=== PATIENT | male | born 1935 | race Caucasian/White ===

== ENCOUNTER → 2017-03-27 | Outpatient (CLI) | payer MEDICARE, BC ==
[~2017-03-27] MED LIST: ALFU1TAB10 PO; ALFU1TAB14 PO; AMLO5TAB2 PO; AMLO5TAB22 PO; ASPI325T24 PO; ASPI81TA23 PO; CELE200C PO; HYZA100T6 PO; LEVO.1 PO; LIPI10TA PO; SYNT112T PO; VITA100T10 PO
[2017-03-27 10:03] LABS: HEMATOCRIT 40.3 % (39.0-51.0); HEMOGLOBIN 13.7 GM/DL (13.0-17.0); MEAN CELL VOLUME 89.6 FL (80.0-100.0); MEAN CORPUSCULAR HEMOGLOBIN 30.4 PG (27.0-34.0); MEAN PLATELET VOLUME 7.8 FL (7.0-11.0); PLATELET COUNT 189 TH/MM3 (150-450); RED CELL DISTRIBUTION WIDTH 13.7 % (11.6-17.2); WHITE BLOOD COUNT 6.4 TH/MM3 (4.0-11.0)
[2017-03-27 10:11] LABS: BILIRUBIN, URINE NEG (NEG); BLOOD, URINE NEG (NEG); GLUCOSE,URINE NEG (NEG); KETONE, URINE NEG (NEG); MUCUS URINE FEW /lpf (OCC); NITRITE,URINE NEG (NEG); SQUAMOUS EPITHELIAL CELL URINE <1 /hpf (0-5); URINE COLOR YELLOW (YELLW/STRAW); URINE LEUKOCYTE ESTERASE NEG (NEG)
[2017-03-27 10:12] LABS: INTERNATIONAL NORMALIZED RATIO 1.1 RATIO; PROTHROMBIN TIME - PATIENT 11.2 SEC (9.8-11.6)
[2017-03-27 10:29] LABS: BICARBONATE 28.3 MEQ/L (21.0-32.0); CALCIUM 8.7 MG/DL (8.5-10.1); CREATININE 1.57 MG/DL (0.60-1.30)
--- NOTE | 2017-03-27 19:11 | EKG ---
Date Performed: 03/27/2017 Time Performed: 09:25:46 PTAGE: 81 years EKG: Sinus rhythm Since previous tracing, no significant change noted Normal ECG PREVIOUS TRACING : 04/09/2014 15.35 DOCTOR: Ash Hall Interpretating Date/Time 03/27/2017 19:10:23
== END ==
LOC: CPRE 08:25
PROVIDERS: ATTEND Orthopaedic Surgery
DX: Z01.812 Encounter for preprocedural laboratory examination (principal); Z01.810 Encounter for preprocedural cardiovascular examination; M79.609 Pain in unspecified limb; M17.11 Unilateral primary osteoarthritis, right knee; I10 Essential (primary) hypertension
CPT/HCPCS: 36415; 80048; 81001; 85027; 85610; 85730; 93005

== ENCOUNTER 2017-04-17 07:10 | Inpatient (IN) | payer MEDICARE, BC ==
[~2017-04-17] VITALS: Ht 172.7 cm; Wt 94.0 kg
[~2017-04-17 07:10] MED LIST changes: -ALFU1TAB10 PO; -AMLO5TAB22 PO; -ASPI325T24 PO; -CELE200C PO; -SYNT112T PO
[2017-04-17 08:19] VITALS: PULSE 76
[2017-04-17] MEDS ORDERED: MIDAZOLAM HCL 2 MG/2 ML VIAL ONE (08:25)
[2017-04-17] MEDS ORDERED: FAMOTIDINE 20 MG/2 ML VIAL ONE ×2 (08:26→09:33)
[2017-04-17] MEDS ORDERED: FAT EMULSION 20% INJ 0 ML ONE (08:26)
[2017-04-17] MEDS ORDERED: SODIUM CHLORID 0.9% 500 ML IV PRN (08:45)
[2017-04-17] MEDS ORDERED: CHLORHEXIDINE GLUCONATE 4% SOLN 120 ML BTL TOPICAL SCH (08:45)
[2017-04-17] MEDS ORDERED: CHLORHEXIDINE GLUCONATE 2 % 1 PACK (2 CLOTHS) TOPICAL PRN (08:45)
[2017-04-17] MEDS ORDERED: POVIDONE IODINE 5% (ANTISEPSIS KIT) 4 APPLICATIONS EACH NARE PRN (08:45)
[2017-04-17] MEDS ORDERED: LACTATED RINGER'S 1000 ML IV PRN (08:45)
[2017-04-17] MEDS ORDERED: METOPROLOL TARTRATE 25 MG TAB PO PRN (08:45)
[2017-04-17] MEDS ORDERED: ceFAZolin 2 GM PREMIX 50 ML IV SCH (08:45)
[2017-04-17] MEDS ORDERED: GENTAMICIN SULFATE 80 MG/2 ML VIAL ONE (09:02)
[2017-04-17] MEDS ORDERED: Post-op Orders (for Pharmacy) XX ONE (09:15)
[2017-04-17] MEDS ORDERED: ZOLPIDEM TARTRATE 5 MG TAB PO PRN (09:15)
[2017-04-17] MEDS ORDERED: ACETAMINOPHEN/HYDROcodone 325 MG/7.5 MG TAB PO PRN ×2 (09:15)
[2017-04-17] MEDS: KETOROLAC TROMETHAMINE 30 MG/ML (IVP) VIAL IVP SCH ×3 (09:15→21:49)
[2017-04-17] MEDS ORDERED: NON-FORMULARY DRUG (Losartan-Hydrochlorothiazide (Hyzaar) 1 TAB) PO SCH (09:15)
[2017-04-17] MEDS ORDERED: ONDANSETRON HCL 4 MG/2 ML VIAL IVP PRN (09:15)
[2017-04-17] MEDS ORDERED: MAGNESIUM HYDROXIDE SUSP 30 ML CUP PO PRN (09:15)
[2017-04-17] MEDS ORDERED: MORPHINE SULFATE 4 MG/ML INJ IV PUSH PRN (09:15)
--- NOTE | 2017-04-17 09:19 | HHI.FF ---
Face to Face Verification Diagnosis: (1) Status post total right knee replacement Physical Therapy Gait training Knee: Total knee, Protocol: Right, Gait training, Full weight bearing Right LE Weight Bearing: WB as tolerated Right LE Range of Motion: Active ROM (active, active-assisted and passive range of motion. Range of motion goal is 0 extension to 135 of flexion. Range of motion in the operating room was 0 extension to 140 of flexion.) Nursing Nursing: Dressing changes (to begin on postop day 7.) Dressing Changes: Daily dressing change (to begin on postop day 7.), Coverderm/ Primapore Additional Instructions Remove Steri-Strips on postoperative day 14. I have seen patient Mega Hernandez on 04/17/17. My clinical findings support the need for the requested home health care services because: Ltd mobility - disease progression Limited ability to care for self High risk of falls I certify that my clinical findings support that this patient is homebound because: Post-op weakness Unsteady gait/balance Unsafe to leave home unassisted Oscar Morris MD (Charles) Apr 17, 2017 09:19
[2017-04-17] MEDS ORDERED: ECASA81 PO (09:20)
[2017-04-17] MEDS ORDERED: TRANEXAMIC ACID INJ 940 MG in SODIUM CHLORIDE 0.9% INJ 100 ML IV SCH ×3 (09:30→12:30)
[2017-04-17] MEDS ORDERED: ACETAMINOPHEN 1000 MG/100 ML 100 ML IV ONE (09:33)
[2017-04-17] MEDS ORDERED: PROPOFOL 500 MG/50 ML INJ 50 ML ONE (09:35)
[2017-04-17] MEDS ORDERED: EXPAREL PERI-ARTICULAR INJECTION (TOTAL VOL. 100 ML) P-ARTICULR SCH ×2 (10:00)
[2017-04-17] MEDS ORDERED: PROPOFOL 200 MG/20 ML AMP IV ONE (12:00)
[2017-04-17] MEDS ORDERED: DEXAMETHASONE SOD PHOS 4 MG/ML VIAL IV ONE (12:00)
[2017-04-17] MEDS ORDERED: ePHEDrine/NS 25 MG/5 ML SYRINGE IV ONE (12:00)
[2017-04-17] MEDS ORDERED: PHENYLEPH/NS 1000 MCG/10 ML SYR IV ONE (12:00)
[2017-04-17] MEDS ORDERED: ONDANSETRON HCL 4 MG/2 ML VIAL IV ONE (12:00)
[2017-04-17] MEDS ORDERED: LACTATED RINGER'S 1000 ML INJ 1,000 ML IV ONE (12:00)
--- NOTE | 2017-04-17 12:20 | PD.OP ---
Operative Report Date of Surgery: Apr 17, 2017 Preoperative Diagnosis: (1) Primary osteoarthritis of right knee Postoperative Diagnosis: (1) Primary osteoarthritis of right knee Procedure: Arthroplasty with Sheryl Triathlon prosthesis (uncemented) Anesthesia: Spinal with supplemental adductor canal block regional and local with Exparel Surgeon: Xu Morris M.D. Phlebotomy Technologist(s): FRANCO Longoria Operation and Findings: Indications and Findings: This 81-year-old man has had long-standing arthritis in his right knee which has been nonresponsive to conservative measures as detailed in the history and physical examination. He has continued pain with inability to fully extend his knee, ambulation intolerance, rest pain. He has not responded to conservative measures including viscosupplementation, corticosteroids, activity modification, nonsteroidal anti-inflammatory agents and use of external supports. Physical findings showed significant varus in the right knee with palpable osteophytes, crepitation on motion and limited motion especially with limitation of extension. X-rays showed severe osteoarthritis with large osteophytes in the medial, lateral and femoral joints with also a large osteophytes posteriorly. This went down to bone on bone in the medial compartment with eburnation. Operative findings: There was severe osteoarthritis in the right knee which was tricompartmental in nature. There is eburnation in the medial and lateral compartments with large osteophytes in the patellofemoral joint, medial and lateral compartments. There were large posterior osteophytes and some loose bodies. The prosthesis used was a Sheryl Triathlon prosthesis. The femur was a size 6, cruciate retaining, uncemented. The tibial baseplate was a size 6 Tritanium with a 11 mm, cruciate retaining, X3 polyethylene spacer. The patella was a size 38 mm asymmetric Tritanium backed. The patient was brought to the clean-air operating suite after an adductor canal block regional had been performed. A spinal anesthetic was administered. The position was supine with a small bolster under the hip on the operative side. A pneumatic tourniquet was applied to the upper thigh. The lower extremity was then prepped with alcohol, Hibiclens and ChloraPrep and draped in the usual manner with the knee draped free. An appropriate timeout procedure was carried out. An incision was made from about 3 fingerbreadths above the superior medial pole of patella down the tibial tubercle on the medial side. The incision was deepened through the subcutaneous tissue to the retinacular structures which were exposed medially and laterally. A medial retinacular incision was then made from the superior middle pole of patella down the tibial tubercle and up into the quadriceps tendon splitting it longitudinally and the medial one third. The patella was reflected. The infrapatellar fat pad was debulked. The anterior cruciate ligament was excised. Medial and lateral meniscectomies were initiated. A fenestration was made in the distal femur for the intramedullary referencing guide. The distal femoral cutting guide and jig were then assembled for a 5, 8 mm cut. When this was in position, the cutting block was stabilized with pins. The jig was removed. The distal femoral cut was then completed with the oscillating saw. The sizing guide was then positioned in place along Whitesides line and the epicondylar axis and stabilized with pins. The femoral size was then determined with the sizing guide. The 4-in-1 cutting block was then positioned in place. Anterior and posterior cuts were made followed by posterior and anterior chamfer cuts taking care to prevent injury to ligamentous structures. Osteophytes were then trimmed from the distal femur. A bone plug was then placed into the fenestration of the distal femur. The proximal tibia was then exposed. The medial and lateral meniscectomies were completed. The extramedullary proximal tibial cutting guide was then positioned in place and stabilized for rotation. The depth of cut was then verified with a stylus referencing from the predetermined side. The cutting block was stabilized with pins. The jig was removed. The depth of cut was then verified and adjusted appropriately with the use of the spacer block. The proximal tibial cut was then made with the oscillating saw taking care to prevent injury to neurovascular and ligamentous structures. Proximal tibial bone was removed. Local anesthetic was administered with Exparel in the posterior capsule. The tibial baseplate trial was then positioned in place. After verifying the appropriate size, the base plate trial was positioned in place along with its spacer. The trial femoral component was then impacted into place. The alignment was checked. The trial tibial baseplate was then pinned in place on the tibia. Attention was directed to the patella. The patella drill guide was positioned in place for the appropriate sized patella. Patellar drilling was then carried out. The trial patella was positioned in place. The knee was taken through a range of motion which was easily 0 extension to 140. The patella trial was removed. The femoral drill holes were made. The femoral trial prosthesis was removed. The tibial spacer was removed. A bone plug was placed into the proximal tibia. The tibial punch was impacted through the proximal tibial punch guide. This was all removed followed by placement of the tibial drill guide. The tibial drill holes were then made. The guide was removed. The cut ends of bone were then cleaned with pulse lavage. The tibial baseplate was then impacted into place and seated appropriately. The spacer was inserted. The the femoral component was then impacted into place and seated appropriately. The patella component was then seated with the patellar vice and tightened appropriately. The knee was taken through a range of motion which was comparable to the previous range of motion with excellent stability in flexion and extension and appropriate patellofemoral tracking. The remainder of the Exparel was then injected throughout the knee as a local anesthetic. Drains were brought out the superior lateral aspect of the suprapatellar pouch. Wound closure then commenced using 0 Vicryl interrupted [id number] sutures for the capsular and fascial structures, 2-0 Vicryl interrupted simple sutures with buried knots for the subcutaneous tissues and 4- 0 Monocryl, tenuous subcuticular closure for the skin. The wound was then dressed with Steri-Strips followed by Optifoam silver impregnated dressing. Sterile soft roll with a cooling pad and Thomas bandage from the base of the toes to mid thigh were then applied. Patient was then transferred from the operating room to the recovery room in satisfactory condition having tolerated procedure well. Counts are correct. Specimens: None. Estimated blood loss: 100 mL Oscar Morris MD (Charles) Apr 17, 2017 12:20
--- NOTE | 2017-04-17 12:23 | HHI.PR ---
Immediate Post Op Note Procedure Date: Apr 17, 2017 Pre Op Diagnosis: (1) Primary osteoarthritis of right knee Post Op Diagnosis: (1) Primary osteoarthritis of right knee Surgeon: Xu Morris M.D. Patrol Driver(s): FRANCO Longoria Procedure: Right total knee arthroplasty using Sheryl Triathlon prosthesis (uncemented). Findings: There was severe osteoarthritis that was tricompartmental in nature in the right knee with eburnation, osteophytes and loss of articular cartilage to bone on bone at least in the medial and lateral compartments. There are large posterior osteophytes. Complications: None Specimen(s) removed: None Estimated blood loss: 100 mL Anesthesia: General, Regional Block (adductor canal block), Local (Exparel) Drains: Hemovac (to) IVF Tourniquet time (min at mmHg) 0 Patient to: PACU Patient Condition: Good Implant/Devices: SEE IMPLANT LOG (if applicable) Date/Time of Procedure: SEE SURGICAL CARE RECORD Oscar Morris MD (Charles) Apr 17, 2017 12:23
[2017-04-17] MEDS ORDERED: HYDR-3580 PO (12:25)
[2017-04-17] MEDS: LACTATED RINGER'S 1000 ML INJ 1,000 ML IV SCH ×2 (14:20→21:50)
--- NOTE | 2017-04-17 15:08 | RADRPT ---
EXAM DATE/TIME: 04/17/2017 13:32 [facility] COMPARISON: No previous studies available for comparison. INDICATIONS : Total right knee. MEDICAL HISTORY : Osteoarthritis. SURGICAL HISTORY : None. ENCOUNTER: Initial ACUITY: 1 day PAIN SCORE: Non-responsive. LOCATION: Right knee FINDINGS: Postsurgical features of right knee arthroplasty. Arthroplasty components are in anatomic alignment. No significant acute bony fracture. Immediate postsurgical soft tissue features. CONCLUSION: 1. Status post right knee arthroplasty in anatomic alignment without significant acute bony fracture. Chinmay Bruce MD on April 17, 2017 at 15:06 Board Certified Radiologist. This report was verified electronically.
[2017-04-17 16:30] VITALS: BP 144/75; PULSE 96; RESP 19; TEMP 95.3; O2SAT 95
[2017-04-17] MEDS ORDERED: cloNIDine HCL 0.1 MG TAB PO PRN (16:45)
--- NOTE | 2017-04-17 16:48 | PD.CONS ---
[facility] By Dr. Morris Reason for Consult Medical management Primary Care Physician Martin Cloud MD Diagnoses: History of Present Illness The patient is an 81-year-old male with past medical history of hypertension and osteoporosis who is presenting to the hospital for elective right knee replacement. The patient says that he has had years of pdnh-ge-hctv arthritis and it was finally time to get surgery. He said that he will be pursuing left knee surgery later on. He takes Tylenol every once in a while. He does not ambulate with a walker or a cane. He tolerated the surgery well. He currently has no complaints of pain. He is tolerating a diet. He already worked with physical therapy. He states that because he had an epidural he is having difficulty with urinating. No other acute complaints. Discussed with nursing at the bedside. The patient said he had a bowel movement today. He denies any recent fever. Review of Systems Except as stated in HPI: all other systems reviewed are Neg Past Family Social History Allergies: Coded Allergies: clindamycin (Verified Allergy, Severe, Rash, 03/27/17) diclofenac (Verified Allergy, Severe, Rash, 03/27/17) Past Medical History Osteoarthritis Hypertension Hyperlipidemia Mini stroke Goiter Carpal tunnel syndrome Past Surgical History Orthoscopic surgery of both knees Active Ordered Medications Current Medications Medications (Trade) Dose Ordered Sig/Briseyda Route Start Time Stop Time Status Last Admin (Hibiclens 4% Top Soln) 1 applic ONCE TOPICAL 04/17/17 08:45 04/20/17 08:44 04/17/17 08:15 Cefazolin Sodium/ Dextrose 50 ml @ 100 mls/hr HOSPITAL PERSONNEL DIRECTOR IV 04/17/17 08:45 04/20/17 08:44 04/17/17 10:42 Tranexamic Acid 940 mg/Sodium Chloride 109.4 ml @ 200 mls/hr ONCE IV 04/17/17 12:30 04/18/17 18:30 04/17/17 13:45 Bupivacaine Liposome 20 ml/ Sodium Chloride 100 ml @ 200 mls/hr ONCE P-ARTICULR 04/17/17 10:00 04/18/17 12:00 04/17/17 10:43 Lactated Ringer's 1,000 ml @ 30 mls/hr Q24H PRN IV 04/17/17 08:45 04/20/17 08:44 2/19/18 08:15 Sodium Chloride 500 ml @ 30 mls/hr [id number] PRN IV 04/17/17 08:45 04/20/17 08:44 (Lopressor) 25 mg HOSPITAL PERSONNEL DIRECTOR PRN PO 04/17/17 08:45 04/20/17 08:44 (Betadine 5% Antisepsis Kit) 1 applic HOSPITAL PERSONNEL DIRECTOR PRN EACH NARE 04/17/17 08:45 04/20/17 08:44 04/17/17 08:15 (Chlorhexidine 2% Cloth) 3 pack HOSPITAL PERSONNEL DIRECTOR PRN TOPICAL 04/17/17 08:45 04/20/17 08:44 04/17/17 08:00 Lactated Ringer's 1,000 ml @ 80 mls/hr [id number] IV 04/17/17 09:10 04/17/17 14:20 Cefazolin Sodium 1000 mg/Sodium Chloride 100 ml @ 200 mls/hr Q6H IV 04/17/17 17:00 04/18/17 05:29 (Morphine Inj) 4 mg Q3H PRN IV PUSH 04/17/17 09:15 ([place] 7.5-325 Mg) 1 tab Q4H PRN PO 04/17/17 09:15 ([place] 7.5-325 Mg) 2 tab Q4H PRN PO 04/17/17 09:15 (Toradol Inj) 15 mg Q6H IVP 04/17/17 09:15 04/19/17 03:16 04/17/17 16:00 (Zofran Inj) 4 mg Q6H PRN IVP 04/17/17 09:15 (Colace) 100 mg BID PO 04/18/17 21:00 (Ambien) 5 mg HS PRN PO 04/17/17 09:15 (Milk Of Magnesia Liq) 30 ml DAILY PRN PO 04/17/17 09:15 (Ecotrin Ec) 81 mg BID PO 04/18/17 12:00 (Norvasc) 5 mg DAILY PO 04/18/17 09:00 (Lipitor) 10 mg HS PO 04/17/17 21:00 (Synthroid) 100 mcg DAILY PO 04/18/17 09:00 (Flomax) 10 mg DAILY@1700 PO 04/17/17 17:00 (Cozaar) 100 mg DAILY@1400 PO 04/18/17 14:00 (Hydrodiuril) 25 mg DAILY@1400 PO 04/18/17 14:00 Family History CAD Osteoarthritis Social History The patient quit smoking 30 years ago. He does not drink alcohol. Physical Exam Vital Signs Vital Signs Date Time Temp Pulse Resp B/P (MAP) Pulse Ox O2 Delivery O2 Flow Rate FiO2 04/17/17 14:30 68 18 128/74 (92) 97 Room Air 04/17/17 14:00 97.6 67 20 129/69 (89) 97 Room Air 04/17/17 13:45 69 17 118/60 (79) 97 Room Air 04/17/17 13:30 68 18 123/62 (82) 96 Room Air 04/17/17 13:15 72 14 115/57 (76) 94 Room Air 04/17/17 13:00 75 14 126/58 (80) 94 Room Air 04/17/17 12:49 96.5 80 14 121/66 (84) 95 Simple Mask 6 04/17/17 08:19 76 04/17/17 07:55 98.0 98 18 132/71 (91) 95 Physical Exam GENERAL: This is a well-nourished, well-developed patient, in no apparent distress. SKIN: No rashes, ecchymoses or lesions. Cool and dry. HEAD: Atraumatic. Normocephalic. No temporal or scalp tenderness. EYES: Pupils equal round and reactive. Extraocular motions intact. No scleral icterus. No injection or drainage. ENT: Nose without bleeding, purulent drainage or septal hematoma. Throat without erythema, tonsillar hypertrophy or exudate. Uvula midline. Airway patent. NECK: Trachea midline. No JVD or lymphadenopathy. Supple, nontender, no meningeal signs. CARDIOVASCULAR: Regular rate and rhythm without murmurs, gallops, or rubs. RESPIRATORY: Clear to auscultation. Breath sounds equal bilaterally. No wheezes , rales, or rhonchi. GASTROINTESTINAL: Abdomen soft, non-tender, nondistended. No hepato-splenomegaly , or palpable masses. No guarding. MUSCULOSKELETAL: Right knee immobilizer. No edema in the left lower extremity. NEUROLOGICAL: Awake and alert. Cranial nerves II through XII intact. Motor and sensory grossly within normal limits. Five out of 5 muscle strength in all muscle groups. Normal speech. PSYCH: Mood and affect appropriate. Imaging Last Impressions Knee X-Ray 04/17/17 0910 Signed Impressions: Service Date/Time: Monday, April 17, 2017 13:32 - CONCLUSION: 1. Status post right knee arthroplasty in anatomic alignment without significant acute bony fracture. Chinmay Bruce MD Assessment and Plan Assessment and Plan Osteoarthritis The patient is status post right knee replacement on 04/17/17. - Weightbearing, wound care and anticoagulation per orthopedic surgery. - Physical therapy. - Incentive spirometry. - Pain control with a bowel regimen. Hypertension Well-controlled at this time. - Resume home regimen. - Clonidine as needed. PPx: Per surgery Discussed Condition With Patient, nurse Lj Ritchie DO Apr 17, 2017 16:48
[2017-04-17] MEDS ORDERED: TAMSULOSIN HCL 0.4 MG CAP PO SCH (17:00)
[2017-04-17] MEDS: TAMSULOSIN HCL 0.4 MG CAP PO SCH (18:21)
[2017-04-17 20:50] VITALS: BP 112/66; PULSE 86; RESP 18; TEMP 96.7; O2SAT 98
[2017-04-17] MEDS ORDERED: PYRIDOXINE PO SCH (21:00)
[2017-04-17] MEDS: ATORVASTATIN 10 MG TAB PO SCH (21:48)
[2017-04-17 23:51] VITALS: BP 108/56; PULSE 84; RESP 18; TEMP 96.8; O2SAT 94
[2017-04-18] MEDS: KETOROLAC TROMETHAMINE 30 MG/ML (IVP) VIAL IVP SCH ×4 (03:15→21:45)
[2017-04-18 04:40] VITALS: BP 127/69; PULSE 83; RESP 18; TEMP 96.7; O2SAT 95
--- NOTE | 2017-04-18 05:54 | PD.ORT.PN ---
Subjective Post Op Day #: 1 Subjective Remarks He is doing well. He has minimal complaints. He indicates that he was able to walk 15 feet yesterday without problems. Range of Motion 0 extension to 70 of flexion. Distance Walked 15 feet with PT. Objective Vitals Vital Signs Date Time Temp Pulse Resp B/P (MAP) Pulse Ox O2 Delivery O2 Flow Rate FiO2 04/18/17 04:40 96.7 83 18 127/69 (88) 95 04/17/17 23:51 96.8 84 18 108/56 (73) 94 04/17/17 20:50 96.7 86 18 112/66 (81) 98 04/17/17 16:30 95.3 96 19 144/75 (98) 95 04/17/17 14:30 68 18 128/74 (92) 97 Room Air 04/17/17 14:00 97.6 67 20 129/69 (89) 97 Room Air 04/17/17 13:45 69 17 118/60 (79) 97 Room Air 04/17/17 13:30 68 18 123/62 (82) 96 Room Air 04/17/17 13:15 72 14 115/57 (76) 94 Room Air 04/17/17 13:00 75 14 126/58 (80) 94 Room Air 04/17/17 12:49 96.5 80 14 121/66 (84) 95 Simple Mask 6 04/17/17 08:19 76 04/17/17 07:55 98.0 98 18 132/71 (91) 95 I/O 04/17/17 04/17/17 04/17/17 04/18/17 04/18/17 04/18/17 07:00 15:00 23:00 07:00 15:00 23:00 Intake Total 1610 ml 720 ml 1303 ml Output Total 190 ml 490 ml 290 ml Balance 1420 ml 230 ml 1013 ml Intake Oral 60 ml 720 ml 240 ml IV Total 150 ml 1063 ml Other 1400 ml Output Urine Total 350 ml 250 ml Drainage Total 90 ml 140 ml 40 ml Estimated Blood Loss 100 ml # Voids 2 # Bowel Movements 0 0 Imaging Last 24 hours Impressions Knee X-Ray 04/17/17 0910 Signed Impressions: Service Date/Time: Monday, April 17, 2017 13:32 - CONCLUSION: 1. Status post right knee arthroplasty in anatomic alignment without significant acute bony fracture. Chinmay Bruce MD Objective Remarks He is resting comfortably, supine in bed, in the CPM. The neurovascular status is intact. The dressing is dry and intact. Assessment & Plan Ortho Post Op Day #: 1 Problem List: (1) Status post total right knee replacement ICD Codes: Z96.651 - Presence of right artificial knee joint Plan: Continue postop care and PT. Assessment and Plan Condition: Good. Orthopedically stable. DVT prophylaxis: Sequentials, VINCE stockings, aspirin 81 mg, twice daily. Discharge plans: Home with home health care. An appointment was scheduled through the office. Prescriptions: [place] 7.5/325 Oscar Morris MD (Charles) Apr 18, 2017 05:54
--- NOTE | 2017-04-18 07:02 | HHI.DS ---
Discharge Summary Admission Date Apr 17, 2017 at 07:10 Discharge Date: Apr 19, 2017 Admitting Diagnosis Primary osteoarthritis, right knee. Diagnosis: (1) Status post total right knee replacement Diagnosis: Principal ICD Codes: Z96.651 - Presence of right artificial knee joint (2) Primary osteoarthritis of right knee Diagnosis: Principal ICD Codes: M17.11 - Unilateral primary osteoarthritis, right knee Status: Resolved Procedures Right total knee arthroplasty using [place] Triathlon prosthesis(uncemented) on 04/17/2017 Brief History This is a 81 year old male patient has had long-standing and progressive pain in his right knee secondary to osteoarthritis as detailed in the history and physical examination. He had limited extension with continued and progressive pain and progressive deformity. Physical findings show degenerative varum with large palpable osteophytes and limited range of motion especially with a block on extension. X-rays showed severe osteoarthritis in the knee with loss of articular cartilage [id number], multiple osteophytes and loose bodies. Imaging Last 72 hours Impressions Knee X-Ray 04/17/17 0910 Signed Impressions: Service Date/Time: Monday, April 17, 2017 13:32 - CONCLUSION: 1. Status post right knee arthroplasty in anatomic alignment without significant acute bony fracture. Chinmay Bruce MD PE at Discharge He is resting comfortably, supine in bed, in the CPM. The neurovascular status is intact. The dressing is dry and intact. Hospital Course The patient was admitted as noted above. The above noted operative procedure was carried out that day. Preoperatively prophylactic antibiotics were administered Ancef according to protocol. These were continued postoperatively. The patient also received tranexamic acid to help with hemostasis according to protocol. In the postanesthesia care unit a continuous passive motion device was initiated. Also initiated were mechanical methods of DVT prophylaxis in the form of VINCE stockings and sequentials. Physical therapy was initiated on the day of surgery. He was able to walk 15 feet the day of surgery. On postoperative day #1 physical therapy continued. The use of the continuous passive motion device continued. DVT prophylaxis with aspirin 81 mg twice daily was initiated at this time. The patient continued physical therapy throughout the hospitalization. The distance walked and range of motion improved throughout the hospitalization. The patient was discharged on postoperative day 1 with the disposition being to home with home health care. An appointment for follow-up was made prior to admission. Pt Condition on Discharge: Good Discharge Disposition: Disch w/ Home Health Serv Discharge Instructions Diet Instructions: As Tolerated, No Restrictions Activities You Can Perform: Full Weight Bearing, Shower Only-No Bath Activities to Avoid: Lifting/Bending, Strenuous Activity, Bathing, Driving Follow up Referrals: Orthopedics with Oscar Morris MD (Charles) New Medications: Aspirin (Aspirin DR) 81 Mg Tabdr 81 MG PO BID for Prevent Blood Clot for 30 Days, #60 TAB Hydrocodone/Acetaminophen (Hydrocodone-Acetamin 7.5-325) 7.5 Mg-325 Mg Tablet 1 TAB PO Q4H PRN for PAIN SCALE 1 TO 10, #50 TAB Continued Medications: Alfuzosin ER 24 HR (Uroxatral ER 24 HR) 10 Mg Tab 10 MG PO dinnertime for BPH, #30 TAB 0 Refills Amlodipine (Amlodipine) 5 Mg Tab 5 MG PO daily @ 2pm for Blood Pressure Management, #30 TAB 0 Refills Atorvastatin (Lipitor) 10 Mg Tab 10 MG PO every other HS for Cholesterol Management, #30 TAB 0 Refills Levothyroxine (Synthroid) 100 Mcg Tab 100 MCG PO DAILY for Thyroid, #30 TAB 0 Refills Losartan-Hydrochlorothiazide (Hyzaar) 100-25 Mg Tab 1 TAB PO DAILY@ 2pm for Blood Pressure Management, #30 TAB 0 Refills Pyridoxine (B6 Natural) 100 Mg Tab 1 TAB PO BID Discontinued Medications: Aspirin (Aspirin EC) 81 Mg Tabdr 81 MG PO DAILY, TAB 0 Refills Oscar Morris MD (Charles) Apr 18, 2017 07:02
[2017-04-18 07:11] LABS: HEMOGLOBIN 11.3 GM/DL (13.0-17.0); MEAN CELL VOLUME 88.7 FL (80.0-100.0); MEAN CORPUSCULAR HEMOGLOBIN 30.3 PG (27.0-34.0); MEAN CORPUSCULAR HGB CONC 34.2 % (32.0-36.0); MEAN PLATELET VOLUME 8.2 FL (7.0-11.0); PLATELET COUNT 177 TH/MM3 (150-450); RED BLOOD COUNT 3.72 MIL/MM3 (4.50-5.90); RED CELL DISTRIBUTION WIDTH 13.7 % (11.6-17.2); WHITE BLOOD COUNT 11.7 TH/MM3 (4.0-11.0)
[2017-04-18 07:38] LABS: BICARBONATE 24.8 MEQ/L (21.0-32.0); CALCIUM 8.3 MG/DL (8.5-10.1); CREATININE 1.77 MG/DL (0.60-1.30); MAGNESIUM 2.2 MG/DL (1.5-2.5)
[2017-04-18 07:54] VITALS: BP 125/65; PULSE 74; RESP 17; TEMP 96.6; O2SAT 93
[2017-04-18] MEDS: amLODIPine BESYLATE 5 MG TAB PO SCH (10:06)
[2017-04-18] MEDS: LEVOTHYROXINE SODIUM 100 MCG TAB PO SCH (10:06)
[2017-04-18] MEDS: LACTATED RINGER'S 1000 ML INJ 1,000 ML IV SCH ×2 (10:10→21:45)
[2017-04-18 11:41] VITALS: BP 112/56; PULSE 64; RESP 18; TEMP 96.2; O2SAT 95
[2017-04-18] MEDS: ASPIRIN EC 81 MG TABEC PO SCH ×2 (12:35→21:45)
--- NOTE | 2017-04-18 12:37 | HHI.PR ---
Subjective Remarks in no acute distress. had some dizziness earlier which is better now. pain is fairly controlled. Objective Vitals Vital Signs Date Time Temp Pulse Resp B/P (MAP) Pulse Ox O2 Delivery O2 Flow Rate FiO2 04/18/17 11:41 96.2 64 18 112/56 (74) 95 04/18/17 07:54 96.6 74 17 125/65 (85) 93 04/18/17 04:40 96.7 83 18 127/69 (88) 95 04/17/17 23:51 96.8 84 18 108/56 (73) 94 04/17/17 20:50 96.7 86 18 112/66 (81) 98 04/17/17 16:30 95.3 96 19 144/75 (98) 95 04/17/17 14:30 68 18 128/74 (92) 97 Room Air 04/17/17 14:00 97.6 67 20 129/69 (89) 97 Room Air 04/17/17 13:45 69 17 118/60 (79) 97 Room Air 04/17/17 13:30 68 18 123/62 (82) 96 Room Air 04/17/17 13:15 72 14 115/57 (76) 94 Room Air 04/17/17 13:00 75 14 126/58 (80) 94 Room Air 04/17/17 12:49 96.5 80 14 121/66 (84) 95 Simple Mask 6 I/O 04/17/17 04/17/17 04/17/17 04/18/17 04/18/17 04/18/17 07:00 15:00 23:00 07:00 15:00 23:00 Intake Total 1610 ml 720 ml 1303 ml Output Total 190 ml 490 ml 290 ml Balance 1420 ml 230 ml 1013 ml Intake Oral 60 ml 720 ml 240 ml IV Total 150 ml 1063 ml Other 1400 ml Output Urine Total 350 ml 250 ml Drainage Total 90 ml 140 ml 40 ml Estimated Blood Loss 100 ml # Voids 2 # Bowel Movements 0 0 Result Diagram: 04/18/17 0602 04/18/17 0602 Imaging Last Impressions Knee X-Ray 04/17/17 0910 Signed Impressions: Service Date/Time: Monday, April 17, 2017 13:32 - CONCLUSION: 1. Status post right knee arthroplasty in anatomic alignment without significant acute bony fracture. Chinmay Bruce MD Objective Remarks GENERAL: This is a well-nourished, well-developed patient, in no apparent distress. CARDIOVASCULAR: Regular rate and regular rhythm without murmurs, gallops, or rubs. RESPIRATORY: Clear to auscultation. Breath sounds equal bilaterally. No wheezes , rales, or rhonchi. GASTROINTESTINAL: Abdomen soft, non-tender, nondistended. Normal, active bowel sounds MUSCULOSKELETAL: Extremities without clubbing, cyanosis, or edema. NEURO: Alert & Oriented x4 to person, place, time, situation. Moves all ext x4 Medications and IVs Inpatient Medications Acetaminophen/ Hydrocodone Bitart ([place] 7.5-325 Mg) 2 tab Q4H PRN PO PAIN SCALE 5 TO 10; Start 04/17/17 at 09:15 Amlodipine Besylate (Norvasc) 5 mg DAILY PO Last administered on 04/18/17at 10: 06; Start 04/18/17 at 09:00 Aspirin (Ecotrin Ec) 81 mg BID PO ; Start 04/18/17 at 12:00 Atorvastatin Calcium (Lipitor) 10 mg HS PO ; Start 04/17/17 at 21:00 Bupivacaine Liposome 20 ml/ Sodium Chloride 100 ml @ 200 mls/hr ONCE P- ARTICULR Last administered on 04/17/17at 10:43; Start 04/17/17 at 10:00; Stop at 12:00; Status DC Cefazolin Sodium 1000 mg/Sodium Chloride 100 ml @ 200 mls/hr Q6H IV Last administered on 04/18/17at 05:14; Start 04/17/17 at 17:00; Stop 04/18/17 at 05:29 ; Status DC Cefazolin Sodium/ Dextrose 50 ml @ 100 mls/hr CARPORT ERECTOR IV Last administered on 04/17/17at 10:42; Start 04/17/17 at 08:45; Stop 04/20/17 at 08:44 Chlorhexidine Gluconate (Chlorhexidine 2% Cloth) 3 pack CARPORT ERECTOR PRN TOPICAL SEE LABEL COMMENTS Last administered on 04/17/17at 08:00; Start 04/17/17 at 08:45 ; Stop 04/20/17 at 08:44 Chlorhexidine Gluconate (Hibiclens 4% Top Soln) 1 applic ONCE TOPICAL Last administered on 04/17/17at 08:15; Start 04/17/17 at 08:45; Stop 04/20/17 at 08:44 Clonidine (Catapres) 0.1 mg Q6H PRN PO SBP> OR = 180, DBP> OR = 100; Start at 16:45 Docusate Sodium (Colace) 100 mg BID PO ; Start 04/18/17 at 21:00 Hydrochlorothiazide (Hydrodiuril) 25 mg DAILY@1400 PO ; Start 04/18/17 at 14:00 Ketorolac Tromethamine (Toradol Inj) 15 mg Q6H IVP Last administered on at 10:07; Start 04/17/17 at 09:15; Stop 04/19/17 at 03:16 Lactated Ringer's 1,000 ml @ 80 mls/hr [id number] IV Last administered on at 21:50; Start 04/17/17 at 09:10 Levothyroxine Sodium (Synthroid) 100 mcg DAILY PO Last administered on at 10:06; Start 04/18/17 at 09:00 Losartan Potassium (Cozaar) 100 mg DAILY@1400 PO ; Start 04/18/17 at 14:00 Magnesium Hydroxide (Milk Of Magnesia Liq) 30 ml DAILY PRN PO CONSTIPATION; Start 04/17/17 at 09:15 Metoprolol Tartrate (Lopressor) 25 mg CARPORT ERECTOR PRN PO SEE LABEL COMMENTS; Start 04/17/17 at 08:45; Stop 04/20/17 at 08:44 Miscellaneous Information (Post-op Orders (for Pharmacy)) STAT ONCE XX ; Start 04/17/17 at 09:15; Stop 04/17/17 at 14:45; Status DC Morphine Sulfate (Morphine Inj) 4 mg Q3H PRN IV PUSH BREAKTHROUGH PAIN Last administered on 04/17/17at 22:56; Start 04/17/17 at 09:15 Non-Formulary Medication 1 tab BID PO ; Start 04/17/17 at 21:00; Stop 04/17/17 at 21:00; Status DC Ondansetron HCl (Zofran Inj) 4 mg Q6H PRN IVP NAUSEA OR VOMITING; Start at 09:15 Povidone Iodine (Betadine 5% Antisepsis Kit) 1 applic CARPORT ERECTOR PRN EACH NARE SEE LABEL COMMENTS Last administered on 04/17/17at 08:15; Start 04/17/17 at 08:45 ; Stop 04/20/17 at 08:44 Sodium Chloride 500 ml @ 30 mls/hr [id number] PRN IV SEE LABEL COMMENTS; Start at 08:45; Stop 04/20/17 at 08:44 Tamsulosin HCl (Flomax) 0.4 mg WITH DINNER PO Last administered on 04/17/17at 18:21; Start 04/17/17 at 18:00 Tranexamic Acid 940 mg/Sodium Chloride 109.4 ml @ 200 mls/hr UNSCH IV ; Start 04/17/17 at 10:00; Stop 04/17/17 at 14:00; Status DC Zolpidem Tartrate (Ambien) 5 mg HS PRN PO SLEEP; Start 04/17/17 at 09:15 A/P Assessment and Plan Osteoarthritis The patient is status post right knee replacement on 04/17/17. - Weightbearing, wound care and anticoagulation per orthopedic surgery. - Physical therapy. - Incentive spirometry. - Pain control with a bowel regimen. Hypertension Well-controlled at this time. - Resume home regimen. - Clonidine as needed. -will hold BP meds if blood drop drops and becomes symptomatic again. - continue to monitor. Sydney Echeverria MD Apr 18, 2017 12:36
[2017-04-18] MEDS ORDERED: LOSARTAN 50 MG TAB PO SCH (14:00)
[2017-04-18] MEDS ORDERED: HYDROCHLOROTHIAZIDE 25 MG TAB PO SCH (14:00)
[2017-04-18 16:07] VITALS: BP 127/65; PULSE 73; RESP 18; TEMP 96.3; O2SAT 95
[2017-04-18] MEDS: TAMSULOSIN HCL 0.4 MG CAP PO SCH (17:38)
[2017-04-18] MEDS ORDERED: OMEP1CAP84 PO (17:43)
[2017-04-18 19:55] VITALS: BP 133/81; PULSE 74; RESP 18; TEMP 96.7; O2SAT 97
[2017-04-18] MEDS: ATORVASTATIN 10 MG TAB PO SCH (21:45)
[2017-04-18] MEDS: DOCUSATE SODIUM 100 MG CAP PO SCH (21:45)
[2017-04-19 00:12] VITALS: BP 123/58; PULSE 71; RESP 18; TEMP 97.4; O2SAT 96
[2017-04-19] MEDS: KETOROLAC TROMETHAMINE 30 MG/ML (IVP) VIAL IVP SCH (03:51)
[2017-04-19 04:39] VITALS: BP 121/66; PULSE 73; RESP 18; TEMP 97.9; O2SAT 95
[2017-04-19 06:50] LABS: HEMATOCRIT 30.5 % (39.0-51.0); HEMOGLOBIN 10.4 GM/DL (13.0-17.0)
--- NOTE | 2017-04-19 07:18 | PD.ORT.PN ---
Subjective Post Op Day #: 2 Subjective Remarks He is doing well. He has minimal complaints. He indicates that he was able to walk 15 feet yesterday without problems. Range of Motion 0-108 Distance Walked Did not walk with physical therapy. Nursing reports that he was walking independently in the [place]. Objective Vitals Vital Signs Date Time Temp Pulse Resp B/P (MAP) Pulse Ox O2 Delivery O2 Flow Rate FiO2 04/19/17 04:39 97.9 73 18 121/66 (84) 95 04/19/17 00:12 97.4 71 18 123/58 (79) 96 04/18/17 19:55 96.7 74 18 133/81 (98) 97 04/18/17 16:07 96.3 73 18 127/65 (85) 95 04/18/17 11:41 96.2 64 18 112/56 (74) 95 04/18/17 07:54 96.6 74 17 125/65 (85) 93 I/O 04/18/17 04/18/17 04/18/17 04/19/17 04/19/17 04/19/17 07:00 15:00 23:00 07:00 15:00 23:00 Intake Total 1303 ml 720 ml 480 ml 480 ml Output Total 290 ml 770 ml 465 ml 1090 ml Balance 1013 ml -50 ml 15 ml -610 ml Intake Oral 240 ml 720 ml 480 ml 480 ml IV Total 1063 ml Output Urine Total 250 ml 700 ml 375 ml 1000 ml Drainage Total 40 ml 70 ml 90 ml 90 ml # Bowel Movements 0 0 0 Result Diagram: 04/19/17 0623 04/18/17 0602 Imaging Last 24 hours Impressions Knee X-Ray 04/17/17 0910 Signed Impressions: Service Date/Time: Monday, April 17, 2017 13:32 - CONCLUSION: 1. Status post right knee arthroplasty in anatomic alignment without significant acute bony fracture. Chinmay Bruce MD Procedures Right total knee arthroplasty using Chloe Triathlon prosthesis(uncemented) on 04/17/2017 Objective Remarks He is resting comfortably, supine in bed, in the CPM. The neurovascular status is intact. The dressing is dry and intact. Assessment & Plan Ortho Post Op Day #: 2 Problem List: (1) Status post total right knee replacement ICD Codes: Z96.651 - Presence of right artificial knee joint Plan: Continue postop care and PT. (2) Primary osteoarthritis of right knee ICD Codes: M17.11 - Unilateral primary osteoarthritis, right knee Status: Resolved Assessment and Plan Condition: Good. Orthopedically stable. DVT prophylaxis: Sequentials, VINCE stockings, aspirin 81 mg, twice daily. Discharge plans: Home with home health care. An appointment was scheduled through the office. Prescriptions: [place] 7.5/325 Oscar Morris MD (Charles) Apr 19, 2017 07:18
[2017-04-19 08:00] VITALS: BP 128/60; PULSE 61; RESP 17; TEMP 97; O2SAT 96
[2017-04-19] MEDS: amLODIPine BESYLATE 5 MG TAB PO SCH (08:08)
[2017-04-19] MEDS: ASPIRIN EC 81 MG TABEC PO SCH (08:08)
[2017-04-19] MEDS: DOCUSATE SODIUM 100 MG CAP PO SCH (08:08)
[2017-04-19] MEDS: LEVOTHYROXINE SODIUM 100 MCG TAB PO SCH (08:08)
== END 2017-04-19 10:52 | disposition home health service (06) | DRG 470 ==
LOC: HSDI 07:10 → N06B 16:18
PROVIDERS: ADMIT Orthopaedic Surgery; ATTEND Orthopaedic Surgery
PROC: 3E0T3BZ Introduction of Anesthetic Agent into Peripheral Nerves and Plexi, Percutaneous Approach (ICD-10-PCS; 2017-04-17)
PROC: 0SRC0JA Replacement of Right Knee Joint with Synthetic Substitute, Uncemented, Open Approach (ICD-10-PCS; principal; 2017-04-17 09:47)
DX: M17.11 Unilateral primary osteoarthritis, right knee (principal); I10 Essential (primary) hypertension; M81.0 Age-related osteoporosis without current pathological fracture; M21.161 Varus deformity, not elsewhere classified, right knee; M25.761 Osteophyte, right knee; E78.5 Hyperlipidemia, unspecified; K21.9 Gastro-esophageal reflux disease without esophagitis; E66.9 Obesity, unspecified; E04.9 Nontoxic goiter, unspecified; Z68.31 Body mass index [BMI] 31.0-31.9, adult; Z86.73 Personal history of transient ischemic attack (TIA), and cerebral infarction without residual deficits; Z87.891 Personal history of nicotine dependence
CPT/HCPCS: 73560; 80048; 83735; 85014; 85018; 85027; 86850; 86900; 86901; 94150; C1776; C9290; J0131; J0690; J1100; J1580; J1885; J2250; J2270; J2370; J2405; J3010; J7120